=== PATIENT | male | born 1975 | race Caucasian/White ===

== ENCOUNTER 2020-02-10 08:31 | Outpatient (CLI) | payer OTHER, SELFPAY ==
--- NOTE | 2020-02-10 08:35 | ECHO_ITS ---
Patient Info Name: Jeyson Salazar Age: 44 years : 1975 Gender: Male Ht: 76 in Wt: 370 lbs BSA: 3.07 m2 HR: 70 bpm BP: 124 / 77 mmHg Heart Rhythm: Sinus Rhythm Technical Quality: Good Exam Date: 02/10/2020 8:48 AM Exam Location: [facility] Patient Status: Outpatient Admit Date: 02/10/2020 Staff Ordering Physician: Shan Strange DO Clinical Medical Transcriptionist: Jer Marcus RDCS Attending Provider: Shan Strange DO Referring Physician: Alexandr RAYMUNDO; Exam Type: CA echo doppler color flow Study Info Indications I42.8 - Other cardiomyopathies Complete two-dimensional, color flow and Doppler transthoracic echocardiogram is performed. Strain analysis performed. History/Risk Factors NICM. Summary 1. Complete two-dimensional, color flow and Doppler transthoracic echocardiogram is performed. 2. Left ventricular chamber dimension is moderately enlarged. 3. Left ventricular systolic function is moderately reduced, estimated at 40%. 4. There is mildly increased left ventricular wall thickness. 5. The left ventricular diastolic function is normal. 6. E/e' 7 is not elevated. 7. Global longitudinal strain is abnormal at -10.6%. 8. Left atrial chamber dimension is moderately enlarged. 9. There is trace mitral valve regurgitation. 10. There is trace tricuspid valve regurgitation. 11. No pulmonary hypertension, estimated pulmonary arterial systolic pressure is 35 mmHg. 12. There is trace pulmonic regurgitation. Left Ventricle Left ventricular systolic function is moderately reduced, estimated at 40%. E/e' 7 is not elevated. Global longitudinal strain is abnormal at -10.6%. Left ventricular chamber dimension is moderately enlarged. There is mildly increased left ventricular wall thickness. The left ventricular diastolic function is normal. Right Ventricle Right ventricular chamber dimension is normal. Right ventricular systolic function is normal. Left Atria Left atrial chamber dimension is moderately enlarged. Right Atria Right atrial chamber dimension is normal. Aortic Valve The aortic valve is trileaflet. There is no aortic valve stenosis. There is no aortic valve regurgitation. Pulmonic Valve There is trace pulmonic regurgitation. Mitral Valve There is no mitral valve stenosis. There is trace mitral valve regurgitation. Tricuspid Valve There is trace tricuspid valve regurgitation. No pulmonary hypertension, estimated pulmonary arterial systolic pressure is 35 mmHg. Pericardium/Pleural There is no pericardial effusion. Inferior Vena Cava Normal inferior vena cava with >50% collapse upon inspiration consistent with normal right atrial pressure, 5 mmHg. Aorta The aortic root size at the sinus of Valsalva is normal. Left Ventricular Outflow Tract Name Value Normal LVOT 2D LVOT Diameter 2.6 cm LVOT Doppler LVOT Peak Gradient 5 mmHg LVOT Mean Gradient 2 mmHg LVOT VTI 23 cm LVOT VTI/AV VTI Ratio 0.8 LVOT Stroke Volume
== END 2020-02-10 08:32 | disposition home or self-care (01) ==
PROVIDERS: PCP Internal Medicine; Visit Provider Internal Medicine Cardiovascular Disease
DX: I42.8 Other cardiomyopathies (principal)
CPT/HCPCS: 93306

== ENCOUNTER 2020-08-23 13:30 | Outpatient (CLI) | payer OTHER, SELFPAY ==
--- NOTE | 2020-08-23 13:34 | ECHO_ITS ---
Patient Info Name: Jeyson Salazar Age: 45 years : 1975 Gender: Male Ht: 76 in Wt: 380 lbs BSA: 3.12 m2 HR: 74 bpm BP: 124 / 86 mmHg Heart Rhythm: Sinus Rhythm Technical Quality: Fair Exam Date: 08/23/2020 1:42 PM Exam Location: [facility] Pul[facility] Patient Status: Outpatient Admit Date: 08/23/2020 Staff Ordering Physician: Shan Strange DO Safe Technician: Maegan Attending Provider: Shan Strange DO Referring Physician: Alexandr RAYMUNDO; Exam Type: CA echo dop color flow w con Study Info Indications I42.8 - Other cardiomyopathies Complete two-dimensional, color flow and Doppler transthoracic echocardiogram is performed with contrast to opacify the left ventricle and to improve the deliniation of the left ventricle endocardial borders. Contrast/Agitated Saline Contrast/Ag. Saline: Definity Amount: 2.00 ml Administered By: Julianna Velazquez RN New IV Access: Dorsum of Hand Site Condition: Site dressing applied and IV removed Summary 1. Left ventricular chamber dimension is moderately enlarged. 2. Definity contrast administered improved wall motion interpretation. 3. Left ventricular systolic function is moderately reduced, estimated at 40-45%. 4. There is moderately increased left ventricular wall thickness. 5. The left ventricular diastolic function is normal. 6. E/e' 10 is mildly elevated. 7. Left atrial chamber dimension is moderately enlarged. 8. No pulmonary hypertension, estimated pulmonary arterial systolic pressure is 29 mmHg. Left Ventricle Definity contrast administered improved wall motion interpretation. E/e' 10 is mildly elevated. Left ventricular chamber dimension is moderately enlarged. Left ventricular systolic function is moderately reduced, estimated at 40-45%. There is moderately increased left ventricular wall thickness. The left ventricular diastolic function is normal. Right Ventricle Right ventricular chamber dimension is normal. Right ventricular systolic function is normal. Left Atria Left atrial chamber dimension is moderately enlarged. Right Atria Right atrial chamber dimension is normal. Aortic Valve The aortic valve is trileaflet. There is no aortic valve stenosis. There is no aortic valve regurgitation. Pulmonic Valve There is no pulmonic regurgitation. Mitral Valve There is no mitral valve stenosis. There is no mitral valve regurgitation. Tricuspid Valve There is no tricuspid valve regurgitation. No pulmonary hypertension, estimated pulmonary arterial systolic pressure is 29 mmHg. Pericardium/Pleural There is no pericardial effusion. Inferior Vena Cava Normal inferior vena cava with >50% collapse upon inspiration consistent with normal right atrial pressure, 5 mmHg. Aorta The aortic root size at the sinus of Valsalva is normal. Left Ventricular Outflow Tract Name Value Normal LVOT 2D LVOT Diameter 2.89 cm LVOT Doppler LVOT Peak Gradient 5 mmHg LVOT Mean Gradient 3 mmHg LVOT VTI 22.78 cm
[2021-08-23] MEDS: PERFLUTREN LIPID MICROSPHERES 1.5 ML VIAL DILUTED TO 10 ML TOTAL VOLUME IV PUSH (14:00)
== END 2020-08-23 13:31 | disposition home or self-care (01) ==
PROVIDERS: PCP Internal Medicine; Visit Provider Internal Medicine Cardiovascular Disease
DX: I42.8 Other cardiomyopathies (principal)
CPT/HCPCS: C8929

== ENCOUNTER 2021-08-23 13:34 | Outpatient (CLI) | payer OTHER, SELFPAY ==
--- NOTE | 2021-08-23 13:50 | ECHO_ITS ---
Patient Info Name: Jeyson Salazar Age: 46 years : 1975 Gender: Male Ht: 76 in Wt: 380 lbs BSA: 3.12 m2 HR: 68 bpm BP: 149 / 97 mmHg Technical Quality: Good Exam Date: 08/23/2021 2:09 PM Exam Location: [facility] Pul[facility] Patient Status: Outpatient Admit Date: 08/23/2021 Staff Ordering Physician: Shan Strange DO Supervisor Building Maintenance: Charly Perez, SARA, RT Attending Provider: Shan Strange DO Referring Physician: Alexandr RAYMUNDO; Exam Type: CA echo dop color flow w con Study Info Indications I50.9 - Heart failure, unspecified Strain analysis performed. Complete two-dimensional, color flow and Doppler transthoracic echocardiogram is performed with contrast to opacify the left ventricle and to improve the deliniation of the left ventricle endocardial borders. Summary 1. Left ventricular chamber dimension is moderately enlarged. 2. Definity contrast administered improved wall motion interpretation. 3. Left ventricular systolic function is moderately reduced, estimated at 40-45%. 4. There is mildly increased left ventricular wall thickness. 5. The left ventricular diastolic function is normal. 6. E/e' 8 is minimally elevated. 7. Global longitudinal strain is abnormal at -12.8%. 8. There is trace mitral valve regurgitation. Left Ventricle E/e' 8 is minimally elevated. Definity contrast administered improved wall motion interpretation. Global longitudinal strain is abnormal at -12.8%. Left ventricular chamber dimension is moderately enlarged. Left ventricular systolic function is moderately reduced, estimated at 40-45%. There is mildly increased left ventricular wall thickness. The left ventricular diastolic function is normal. Right Ventricle Right ventricular systolic function is normal and with normal TAPSE 3.2 cm. Right ventricular chamber dimension is normal. Left Atria Left atrial chamber dimension is normal. Right Atria Right atrial chamber dimension is normal. Aortic Valve The aortic valve is trileaflet. There is no aortic valve stenosis. There is no aortic valve regurgitation. Pulmonic Valve There is no pulmonic regurgitation. Mitral Valve There is no mitral valve stenosis. There is trace mitral valve regurgitation. Tricuspid Valve There is no tricuspid valve regurgitation. Pericardium/Pleural There is no pericardial effusion. Inferior Vena Cava Normal inferior vena cava with >50% collapse upon inspiration consistent with normal right atrial pressure, 5 mmHg. Aorta The aortic root size at the sinus of Valsalva is normal. Left Ventricular Outflow Tract Name Value Normal LVOT 2D LVOT Diameter 2.82 cm LVOT Doppler LVOT Peak Gradient 7 mmHg LVOT Mean Gradient 4 mmHg LVOT VTI 26.85 cm LVOT VTI/AV VTI Ratio 0.94 LVOT Stroke Volume 167.78 ml LVOT CO 11.30 l/min LVOT CI 3.62 L/min/m2 Mitral Valve
== END 2021-08-23 13:35 | disposition home or self-care (01) ==
PROVIDERS: PCP Internal Medicine; Visit Provider Internal Medicine Cardiovascular Disease
DX: I42.8 Other cardiomyopathies (principal); R93.1 Abnormal findings on diagnostic imaging of heart and coronary circulation
CPT/HCPCS: C8929; Q9957

== ENCOUNTER 2022-01-19 13:33 | Outpatient (CLI) | payer OTHER, SELFPAY ==
--- NOTE | ~2022-01-19 | XR_ITS ---
EXAMINATION: XR chest 2V 01/19/2022 13:54 INDICATION: Chest pain PROCEDURE: 2 view chest COMPARISON: No prior studies for comparison. FINDINGS: The lungs are clear. The cardiomediastinal silhouette is within normal limits. There are no pleural effusions. There is no pneumothorax suspected. IMPRESSION: 1: NO ACUTE CARDIOPULMONARY DISEASE. Reviewed, dictated and finalized at location A.
== END 2022-01-19 13:34 | disposition home or self-care (01) ==
LOC: ANHIMG 13:36
PROVIDERS: PCP Internal Medicine; Visit Provider Physician Assistant Medical
DX: R07.9 Chest pain, unspecified (principal)
CPT/HCPCS: 71046

== ENCOUNTER 2022-06-13 01:00 | Day surgery (SDC) | payer OTHER, SELFPAY ==
[2022-05-31 12:10] VITALS: BMI 45.1
--- NOTE | 2022-06-12 11:08 | WPDANESEPPF ---
Anes - Initial Pre Proc Eval Procedure: Operation Date: 06/13/22 14:00 Proposed Procedures p Screening Colonoscopy - Larry Rosales MD Date/Time: 06/12/22 11:08 Surgeon: Larry Rosales MD Pre Op Diagnosis: neoplasm screening Patient Data Age: 47 Gender: M Height: 1.96 m Weight: 172.8 kg Allergies Allergy/AdvReac Type Severity Reaction Status Date / Time No Known Allergies Allergy Mild Verified 06/13/22 13:13 Home Medications Medication Instructions Recorded Confirmed Type aspirin 81 mg tablet,delayed 81 mg PO DAILY 07/21/19 06/13/22 History release (Adult Low Dose Aspirin) coenzyme Q10 10 mg capsule 10 mg PO DAILY 07/21/19 06/13/22 History omega-3 fatty acids 1,000 mg 2,000 mg PO BID 01/26/21 06/13/22 History capsule (Fish Oil Concentrate) sacubitril 97 mg-valsartan 103 mg 1 tablet PO BID #180 tabs 07/27/21 06/13/22 Rx tablet (Entresto) testosterone cypionate 200 mg/mL 150 mg (0.75 mL) IM WEEKLY #10 mL 01/16/22 06/13/22 Rx intramuscular oil montelukast 10 mg tablet 10 mg PO DAILY #30 tabs 03/10/22 06/13/22 Rx (Singulair) diazepam 2 mg tablet 2 mg PO TID PRN muscle spasm #90 03/21/22 06/13/22 Rx tabs misoprostol 200 mcg tablet 200 mcg PO BID #180 tabs 04/14/22 06/13/22 Rx pantoprazole 40 mg tablet,delayed 40 mg PO QHS #90 tabs 04/14/22 06/13/22 Rx release pregabalin 75 mg capsule (Lyrica) 150 mg PO BID #360 caps 04/25/22 06/13/22 Rx diclofenac sodium 75 mg 75 mg PO BID #180 tabs 05/01/22 06/13/22 Rx tablet,delayed release atomoxetine 40 mg capsule 40 mg PO DAILY #30 caps 05/16/22 06/13/22 Rx (Strattera) cyclobenzaprine 5 mg tablet 5 mg PO TID PRN low back pain #90 05/16/22 06/13/22 Rx tabs hydrocodone 7.5 mg-acetaminophen 1 tablet PO Q6H PRN pain #120 tabs 05/16/22 06/13/22 Rx 325 mg tablet linaclotide 145 mcg capsule 145 mcg PO DAILY #90 caps 05/16/22 06/13/22 Rx (Linzess) albuterol sulfate 90 mcg/actuation See Rx Instructions inhalation Q4H 05/29/22 06/13/22 Rx aerosol inhaler #8.5 grams carvedilol 25 mg tablet 25 mg PO BID 05/31/22 06/13/22 History fenofibrate 160 mg tablet 160 mg PO DAILY 05/31/22 06/13/22 History rosuvastatin 20 mg tablet 20 mg PO DAILY 05/31/22 06/13/22 History Patient hx anesthesia problems: none Family hx anesthesia problems: none Results Review: All pre-operative results and documents have been reviewed as part of the pre-operative evaluation. 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 [place] (dyspnea on exertion) Dyslipidemia Essential hypertension Hypersomnia Immunization due Morbid obesity with BMI of 45.0-49.9, adult NICM (nonischemic cardiomyopathy) CAIN on CPAP Palpitations with regular cardiac rhythm Systolic heart failure, chronic Unspecified systolic (congestive) heart failure Surgical History Surgical History (Updated 05/16/22 @ 09:18 by Lisa Alas PA-C) History of back surgery discectomy 2006 anterior fusion L5-S1 2006 History of elbow surgery bilateral for tendonitis 2009,2011 Family History Family History Mother Family history of malignant neoplasm Father Family history of congestive heart failure Social History Social History (Updated 05/16/22 @ 08:34 by Julianna Bell) Smoking status: Never smoker Second hand tobacco smoke exposure: No Alcohol intake: never Substance use: never Substance use type: does not use Lack of Transportation: No Lack of Food: Never True Current Housing: I Have Housing Conc
[2022-06-13 13:05] VITALS: BP 137/97; PULSE 78; RESP 18; TEMP 36.4; O2SAT 98; BMI 44.1
[2022-06-13] MEDS: LACTATED RINGERS 1,000 ML 150 ML IV CONT (13:25)
--- NOTE | 2022-06-13 14:17 | PM.HPGS ---
History of Present Illness History of Present Illness Consent: Risks, benefits, and alternatives have been discussed and questions answered. Patient agrees to proceed with procedure. Chief complaint: neoplasm screening Narrative: Jeyson Salazar is a 47 year old male with polyps when had first colonoscopy, second one about 8 years ago Review of Systems Constitutional: Constitutional: Denies headache(s) and Denies weakness Eyes: Eyes: Denies blurry vision ENT: Reports Normal hearing present, Denies headache(s) and Denies neck pain Cardiovascular: Cardiovascular: Denies chest pain and Denies dyspnea Respiratory: Respiratory: Denies dyspnea Gastrointestinal: Gastrointestinal: Reports no additional gastrointestinal complaints Genitourinary: Genitourinary: Denies dysuria Musculoskeletal: Musculoskeletal: Denies neck pain Integumentary/Breasts: Skin/Breast: Denies dry skin Neurologic: Reports Normal hearing present, Denies headache(s) and Denies weakness Psychiatric: Psychiatric: Denies anxiety Endocrine: Endocrine: Denies change in body appearance Hematologic/Lymphatic: Hematologic/Lymphatic: Denies easy bleeding Allergic/Immunologic: Allergic/Immunologic: Denies urticaria PMFSH Past Medical History Medical History (Updated 06/13/22 @ 14:18 by Larry Rosales MD) Asthma with acute exacerbation Biceps rupture, distal bilateral torn and repair R 2017, L 2021 Body mass index (BMI) 45.0-49.9, adult (01/30/19) CAD (coronary artery disease) Cardiomyopathy, unspecified Chest pain Chronic low back pain Chronic, continuous use of opioids Colon polyp COVID Dependence on other enabling machines and devices [place] (dyspnea on exertion) Dyslipidemia Essential hypertension Hypersomnia Immunization due Morbid obesity with BMI of 45.0-49.9, adult NICM (nonischemic cardiomyopathy) CAIN on CPAP Palpitations with regular cardiac rhythm Systolic heart failure, chronic Unspecified systolic (congestive) heart failure Surgical History Surgical History (Updated 05/16/22 @ 09:18 by Lisa Alas PA-C) History of back surgery discectomy 2006 anterior fusion L5-S1 2006 History of elbow surgery bilateral for tendonitis 2009,2011 Family History Family History Mother Family history of malignant neoplasm Father Family history of congestive heart failure Social History Social History (Updated 05/16/22 @ 08:34 by Julianna Bell) Smoking status: Never smoker Second hand tobacco smoke exposure: No Alcohol intake: never Substance use: never Substance use type: does not use Lack of Transportation: No Lack of Food: Never True Current Housing: I Have Housing Concerned About Future Housing: No Difficulty Paying Gas/Electric Bills: No Difficulty Paying for Meds: No Currently Unemployed: No Education: Trade/Vocational Certificate Difficulty w/ Childcare or Family Care: No Living arrangements: with family Occupation/Education: occupation Gender identity (if verbalized by the patient): Male Sexual Orientation (if Verbalized by the Patient): Straight or Heterosexual Spiritual care concerns: No Meds Home Medications and Allergies Home Medications Medication Instructions Recorded Confirmed Type aspirin 81 mg tablet,delayed 81 mg PO DAILY 07/21/19 06/13/22 History release (Adult Low Dose Aspirin) coenzyme Q10 10 mg capsule 10 mg PO DAILY 07/21/19 06/13/22 History omega-3 fatty acids 1,000 mg 2,000 mg PO BID 01/26/21 06/13/22 History capsule (Fish Oil Concentrate) sacubitril 97 mg-valsartan 103 mg 1 tablet PO BID #180 tabs 07/27/21 06/13/22 Rx tablet (Entresto) testosterone cypionate 200 mg/mL 150 mg (0.75 mL) IM WEEKLY #10 mL 01/16/22 06/13/22 Rx intramuscular oil montelukast 10 mg tablet 10 mg PO DAILY #30 tabs 03/10/22 06/13/22 Rx (Singulair) diazepam 2 mg tablet 2 mg PO TID PRN mus
[2022-06-13 14:44] VITALS: BP 115/81; PULSE 90; RESP 24; O2SAT 95
[2022-06-13 14:54] VITALS: BP 131/92; PULSE 80; RESP 19; O2SAT 97
[2022-06-13 15:04] VITALS: BP 133/92; PULSE 80; RESP 28; O2SAT 97
== END 2022-06-13 15:12 | disposition home or self-care (01) ==
PROVIDERS: PCP Physician Assistant Medical; Visit Provider Internal Medicine Gastroenterology
PROC: 0DJD8ZZ Inspection of Lower Intestinal Tract, Via Natural or Artificial Opening Endoscopic (ICD-10-PCS; CPT 45378; principal; 2022-06-13 14:00)
DX: Z12.11 Encounter for screening for malignant neoplasm of colon (principal); K57.30 Diverticulosis of large intestine without perforation or abscess without bleeding; K62.1 Rectal polyp; I25.10 Atherosclerotic heart disease of native coronary artery without angina pectoris; E78.5 Hyperlipidemia, unspecified; I11.0 Hypertensive heart disease with heart failure; I50.22 Chronic systolic (congestive) heart failure; G47.33 Obstructive sleep apnea (adult) (pediatric); J45.909 Unspecified asthma, uncomplicated; I42.9 Cardiomyopathy, unspecified; E66.01 Morbid (severe) obesity due to excess calories; Z68.41 Body mass index [BMI] 40.0-44.9, adult; M54.50 Low back pain, unspecified; G89.29 Other chronic pain; Z98.1 Arthrodesis status; Z79.82 Long term (current) use of aspirin; Z79.891 Long term (current) use of opiate analgesic; Z79.890 Hormone replacement therapy; Z79.51 Long term (current) use of inhaled steroids
CPT/HCPCS: 45380; 88305; J2704; J7120

== ENCOUNTER 2022-11-06 14:39 | Outpatient (CLI) | payer OTHER, SELFPAY ==
--- NOTE | 2022-11-06 14:43 | ECHO_ITS ---
Patient Info Name: Jeyson Salazar Age: 47 years : 1975 Gender: Male Ht: 76 in Wt: 390 lbs BSA: 3.16 m2 HR: 75 bpm BP: 179 / 108 mmHg Heart Rhythm: Sinus Rhythm Technical Quality: Fair Exam Date: 11/06/2022 2:52 PM Exam Location: [facility] Pul[facility] Patient Status: Outpatient Admit Date: 11/06/2022 Staff Ordering Physician: Shan Strange DO Shift Supervisor Rn: Maegan Stephens RDCS Attending Provider: Shan Strange DO Referring Physician: Alexandr RAYMUNDO; Exam Type: CA echo dop color flow w con Study Info Indications - other cardiomyopathy Complete two-dimensional, color flow and Doppler transthoracic echocardiogram is performed with contrast to opacify the left ventricle and to improve the deliniation of the left ventricle endocardial borders. Contrast/Agitated Saline Contrast/Ag. Saline: Definity Amount: 2.00 ml Administered By: Maegan Stephens RDCS Existing IV Access: Yes IV Access Condition: patent with no signs of infiltration Summary 1. Left ventricular chamber dimension is moderately enlarged. 2. Definity contrast administered improved wall motion interpretation. 3. Left ventricular systolic function is normal, estimated at 55-60%. 4. The left ventricular diastolic function is grade II diastolic dysfunction. 5. E/e' 9 is minimally elevated. 6. Left atrial chamber dimension is moderately enlarged. 7. No pulmonary hypertension, estimated pulmonary arterial systolic pressure is 17 mmHg. Left Ventricle E/e' 9 is minimally elevated. Definity contrast administered improved wall motion interpretation. Left ventricular chamber dimension is moderately enlarged. Left ventricular systolic function is normal, estimated at 55-60%. The left ventricular diastolic function is grade II diastolic dysfunction. Right Ventricle Right ventricular systolic function is normal and with normal TAPSE 2.2 cm. Right ventricular chamber dimension is normal. Left Atria Left atrial chamber dimension is moderately enlarged. Right Atria Right atrial chamber dimension is normal. Aortic Valve The aortic valve is trileaflet. There is no aortic valve stenosis. There is no aortic valve regurgitation. Pulmonic Valve There is no pulmonic regurgitation. Mitral Valve There is no mitral valve stenosis. There is no mitral valve regurgitation. Tricuspid Valve There is no tricuspid valve regurgitation. No pulmonary hypertension, estimated pulmonary arterial systolic pressure is 17 mmHg. Pericardium/Pleural There is no pericardial effusion. Inferior Vena Cava Normal inferior vena cava with >50% collapse upon inspiration consistent with normal right atrial pressure, 5 mmHg. Aorta The aortic root size at the sinus of Valsalva is normal. Left Ventricular Outflow Tract Name Value Normal LVOT 2D LVOT Diameter 2.52 cm LVOT Doppler LVOT Peak Gradient 4 mmHg LVOT Mean Gradient 2 mmHg LVOT VTI 19.18 cm LVOT VTI/AV VTI Ratio 0.62 LVOT Stroke Volume 95.73 ml LVOT CO 6.99 l/min LVOT CI
[2022-11-06] MEDS: PERFLUTREN LIPID MICROSPHERES 1.5 ML VIAL DILUTED TO 10 ML TOTAL VOLUME IV PUSH (15:30)
--- NOTE | 2022-11-06 16:11 | IVDEFINITY ---
Prior to administration of IV Definity the patient was educated on the risks and benefits of the imaging enhancing agent including potential adverse side effects. The patient verbalized understanding. Allergies were verified. No exclusion criteria were identified and at least one of the following inclusion criteria were met: 1) physician request, 2) patient technically difficult to image (per the [place] [employer] guidelines of two or more segments not discernable within the apical view), or 3) questionable left ventricular function. ?
== END 2022-11-06 14:40 | disposition home or self-care (01) ==
LOC: ANHCARD 14:40
PROVIDERS: PCP Physician Assistant Medical; Visit Provider Internal Medicine Cardiovascular Disease
DX: I42.8 Other cardiomyopathies (principal)
CPT/HCPCS: C8929; Q9957

== ENCOUNTER 2024-10-07 15:20 | Outpatient (CLI) | payer OTHER, SELFPAY ==
--- NOTE | ~2024-10-07 | US_ITS ---
LEFT LOWER EXTREMITY VENOUS ULTRASOUND Ordering provider: Shan Strange DO History: . M79.605 - Pain in left leg . Comparison: None. FINDINGS: --COMMON FEMORAL: Patent and free of thrombus. Normal compressibility, phasic flow and augmentation. --PROXIMAL SUPERFICIAL FEMORAL: Patent and free of thrombus. Normal compressibility, phasic flow and augmentation. --DISTAL SUPERFICIAL FEMORAL: Patent and free of thrombus. Normal compressibility, phasic flow and au gmentation. --POPLITEAL: Patent and free of thrombus. Normal compressibility, phasic flow and augmentation. --POSTERIOR TIBIAL: Patent and free of thrombus. Normal compressibility, phasic flow and augmentation . Thrombosis seen in the greater and lesser saphenous veins. IMPRESSION: No deep vein thrombosis. Thrombosis in the greater and lesser saphenous veins. Reviewed, dictated and finalized at location A.
== END 2024-10-07 15:21 | disposition home or self-care (01) ==
PROVIDERS: PCP Physician Assistant Medical; Visit Provider Internal Medicine Cardiovascular Disease
DX: M79.605 Pain in left leg (principal); I82.812 Embolism and thrombosis of superficial veins of left lower extremity
CPT/HCPCS: 93971

== ENCOUNTER 2024-11-11 11:30 | Outpatient (CLI) | payer OTHER, SELFPAY ==
--- OUTSIDE RECORDS SUMMARY | 2024-11-11 11:33 | XMS_ITS | Referral Summary ---
Author Organization [facility] Healthcare Address [address] [place] [address] Care Team Providers Care Revenue Settlements Administrator Name Role Phone Donta Garsia MD Unavailable [phone] Lisa Alas Primary Care Provider [phone] Encounters Date Type Department Care Team Description 10/08/[address] [facility] Otolaryngology [address] [place] [phone] Xuan Ellis CCC-Levi 09/23/[address] [facility] Otolaryngology [address] [place] [phone] Xuan Ellis CCC-Levi 09/18/2024 1:00 PM CDT Procedure visit [facility] Otolaryngology [address] [place] [phone] Xuan Ellis CCC-A Sensorineural hearing loss, bilateral (Primary Dx); Encounter for adjustment and management of cochlear device 09/03/2024 1:00 PM CDT Procedure visit [facility] Otolaryngology [address] [place] [address], [address] [address] Xuan Ellis CCC-A Sensorineural hearing loss (SNHL) of right ear with restricted hearing of left ear (Primary Dx) 08/27/2024 1:00 PM CDT Procedure visit [facility] Otolaryngology [address], [address] [place] [address] Xuan Ellis CCC-Levi Sensorineural hearing loss, bilateral (Primary Dx); Encounter for adjustment and management of cochlear device 08/15/[address] [facility] Otolaryngology [address], [address] [place] [address] Yvonne Blakely CMA Telephone (Transderm Scop Patch) 08/13/2024 11:30 AM CDT Ancillary Procedure [facility] [address] [place] [address] Cochlear hearing loss 08/13/2024 10:40 AM CDT - 08/13/2024 1:00 PM CDT Surgery [facility] Operating Room [address] [place] [address] Dirk Harris MD IMPLANTATION COCHLEAR DEVICE UNILATERAL. [69844 (CPT )] 08/13/2024 10:43 AM CDT Anesthesia Event [facility] Operating Room [address] [place] [address] Alfredo Faith MD Maue, Jessica Brooke, NP 08/13/2024 8:22 AM CDT - 08/13/2024 2:18 PM CDT Hospital Encounter [facility] Operating Room [address] [place] [id number] Dirk Harris MD Sensorineural hearing loss, bilateral [H90.3] (Primary Dx) Discharge Disposition: Discharge to home or self care from Last 3 Months Allergies No known active allergies Medications Entresto 97-103 mg tabletIndications :chronic heart failure Take 1 tablet by mouth 2 (two) times a day 2 Active rosuvastatin (CRESTOR) 20 mg tabletIndications :hyperlipidemia Take 1 tablet (20 mg total) by mouth nightly [address] (PROTONIX) 40 mg EC tablet Take 1 tablet (40 mg total) by mouth nightly at bedtime. 2 Active montelukast (SINGULAIR) 10 mg tabletIndications :Seasonal Allergic Rhinitis Take 1 tablet (10 mg total) by mouth nightly 2 Active miSOPROStoL (CYTOTEC) 200 mcg tabletIndications :Gastric Ulcer,NSAID-Induc ed Gastric Ulcer Take 1 tablet (200 mcg total) by mouth 2 (two) times a day While taking diclofenac 2 Active HYDROcodone-aceta minophen (NORCO) 7.5-325 mg per tabletIndications :Pain Take 1 tablet by mouth 4 (four) times a day as needed for pain 2 Active fenofibrate (TRIGLIDE) 160 mg tabletIndications :hypercholesterol emia,hyperlipidem ia Take 1 tablet (160 mg total) by mouth nightly [address] (VOLTAREN) 75 mg EC tabletIndications :Pain Take 1 tablet (75 mg total) by mouth 2 (two) times a day 2 Active diazePAM (VALIUM) 2 mg tabletIndications :anxiety Take 1 tablet (2 mg total) by mouth 3 (three) times a day as needed 2 Active cyclobenzaprine (FLEXERIL) 5 mg tabletIndications :Muscle Spasm Take 1 tablet (5 mg total) by mouth 3 (three) times a day as needed for muscle spasms 2 Active carvediloL (COREG) 25 mg tabletIndications :hypertension Take 1 tablet (25 mg total) by mouth 2 (two) times a day with meals 2 Active albuterol HFA (PROVENTIL HFA,VENTOLIN HFA,PROAIR HFA) 90 mcg/actuation inhalerIndication s:Acute Asthma Attack Inhale 2 puffs every 4 (four) hours as needed 2 Active aspirin 81 mg enteric coated tabletIndications :prevention of thrombosis Take 1 tablet (81 mg total) by mouth every morning Active coenzyme Q10 10 mg capsuleIndication s:supplement Take 1 capsule (10 mg total) by mouth every morning Active fish oil-dha-epa 1,200-144-216 mg capsuleIndication s:supplement Take 1 tablet by mouth every morning Active atomoxetine (STRATTERA) 100 mg capsuleIndication s:Attention-Defic it Hyperactivity Disorder Take 1 capsule (100 mg total) by mouth every morning 4 Active Linzess 72 mcg capsuleIndication s:chronic idiopathic constipation Take 1 capsule (72 mcg total) by mouth every morning Active cetirizine (ZyrTEC) 10 mg tabletIndications :Seasonal Allergic Rhinitis Take 1 tablet (10 mg total) by mouth every morning Active sildenafiL (VIAGRA) 100 mg tablet Take 1 tablet (100 mg total) by mouth as needed for erectile dysfunction 4 Active testosterone cypionate (DEPO-TESTOTERONE ) 200 mg/mL injectionIndicati ons:Androgen Deficiency Inject 1 mL (200 mg total) into the muscle as instructed once a week sundays 4 Active Mounjaro 15 mg/0.5 mL pen injectorIndicatio ns:type 2 diabetes mellitus,weight loss Inject 0.5 mL (15 mg total) under the skin once a week sundays 4 Active topiramate (TOPAMAX) 25 mg tablet Take 1 tablet (25 mg total) by mouth every morning 5 Active phentermine 15 mg capsuleIndication s:Weight Loss Management for Obese Patient (BMI >= 30) Take 1 capsule (15 mg total) by mouth every morning 5 Active pregabalin (LYRICA) 75 mg capsuleIndication s:pain Take 2 capsules (150 mg total) by mouth 2 (two) times a day 5 Active amoxicillin (AMOXIL) 500 mg tablet/capsule Take 1 tablet/capsule (500 mg total) by mouth 2 (two) times a day 10 tablet/capsu le 5 Active Active Problems Problem Noted Date Diagnosed Date Sensorineural hearing loss, bilateral 08/13/2024 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 I think at this point there is not a lot of reason to pursue any further injections and we talked about that. We discussed hearing aid options including a cochlear implant versus a Bi Cros type of hearing aid system or a bone conduction hearing aid. I think he should probably talk with 1 of the otologists to discuss the possible surgical solutions. He also would like to do that. He does indicate that his tinnitus has become much more tolerable although it is still present and somewhat bothersome. Assessment & Plan (11/07/2023 8:38 PM CDT): I recommended another steroid injection. He really did not have much improvement with the 1st 1. He would like to go ahead and pursue that also. I am recommending a follow-up audiogram in about 4 weeks. We talked about amplification options including a Bi Cros hearing aid as well as a bone conduction aid. We will see how things go. Assessment & Plan (10/30/2023 12:19 PM CDT): He has had a very minimal improvement in his hearing on the right side after taking steroids and Valtrex. His MRI scan was also normal and I reviewed that with him. After reviewing his hearing test with him I think he would benefit from intratympanic steroid injection and he would like to go ahead and pursue that. He understands the risks that it may not help. There is some risk of vertigo. Some risk of a TM perforation. He accepts that. He tolerated the steroid injection quite well on the right side. I am going to treat with another steroid pack at his request and I do think this is reasonable. I would like to see him back in about 1-2 weeks with a hearing test and possibly another steroid injection. He would like to pursue that also. Assessment & Plan (10/16/2023 12:52 PM CDT): He has a sudden hearing loss involving the right ear. I talked with him about the various potential causes for this including a viral infection or 8th nerve tumor. Also could be due to vascular injury or rupture of the intracochlear membranes. In any case I think he needs to be treated with a high dose of prednisone along with a course of Valtrex. I also I am recommending an MRI scan which he is agreeable with. I would like to see him back in the next week or 2 for a follow up hearing test. I discussed the potential need for intratympanic steroids. I also indicated that all this may not work leaving him with deafness in his right ear. He understands. He would like to go ahead and proceed with my recommendations. Tinnitus of both ears 10/16/2023 Assessment & Plan (11/07/2023 8:39 PM CDT): This has become a little bit more tolerable but he still has noise sensitivity which can be difficult. There is not a whole lot more that can be done for this. Sometimes amplification can help. He understands. Assessment & Plan (10/30/2023 12:17 PM CDT): He again wanted to know if there is anything that can be done with the ringing he has in his ears. I think that most of this is due to his hearing loss. I indicated that there is not a whole lot that can be done for that at least medically. Hearing aids can be very helpful I explained. I also recommended some type of ambient noise generator to use when he is trying to sleep. He understands. Assessment & Plan (10/16/2023 12:49 PM CDT): Tinnitus is probably due to hearing loss but now seems worse. He is tolerating it pretty well and over the years has gotten used to it. I do not feel there is much more that can be done for it other than considering amplification at some point. He understands that. Pain in both lower extremities 10/05/2022 Rupture of biceps tendon 07/04/2017 Lateral epicondylitis 05/16/2011 Immunizations Immunization Administration Dates Next Due Pneumococcal Conjugate Pcv20 07/23/2024 Tdap 05/16/2022 Social History Tobacco Use Types Packs/Day Years Used Date Smoking Tobacco: Never Smokeless Tobacco: Never Tobacco Cessation:Counseling Given: Not Answered AUDIT-C Answer Date Recorded Q1: How often do you have a drink containing alcohol? Never 08/13/2024 Q2: How many drinks containi ng alcohol do you have on a typical day when you are drinking? Patient does not drink Q3: How often do you have si x or more drinks on one occasion? Never 08/13/2024 Personal Safety Answer Date Recorded Have you ever been in or are you currently in a harmful physical or emotional relationship or is someone making you feel afraid or unsafe? 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 Gender Identity Not on file Sexual Orientation Not on file Last Filed Vital Signs Vital Sign Reading Time Taken Comments Blood Pressure 105/78 08/13/2024 2:10 PM CDT Pulse 102 08/13/2024 2:10 PM CDT Temperature 36.7 C (98.1 F) 08/13/2024 1:00 PM CDT Respiratory Rate 18 08/13/2024 2:10 PM CDT Oxygen Saturation 93% 08/13/2024 2:10 PM CDT Inhaled Oxygen Concentration - - Weight 142 kg (313 lb) 08/13/2024 8:40 AM CDT Height 195.6 cm (6' 5) 08/13/2024 8:40 AM CDT Body Mass Index 37.12 08/13/2024 8:40 AM CDT Plan of Treatment Not on file Medical Devices Implanted Type Area Supervisor [employer] Device Identifier Shelf Expiration Date Model / Serial / Lot Fusion N/A: Lumbar-Sacr al Spine [employer] Corkscrew Fiberwire 3.5mm 12mm Self Tap Eyelet Handle Private Duty Aide Ar-1915sf - [id number] Implanted:Qty: 1 on 11/16/2021 by Ferny Rodríguez MD at [facility] Left: Arm [employer] [id number] 01/13/2022 AR-1915SF / / [id number] [employer] Corkscrew Fiberwire 3.5mm 12mm Self Tap Eyelet Handle Private Duty Aide Ar-1915sf - [id number] Implanted:Qty: 1 on 11/16/2021 by Fenry Rodríguez MD at [facility] Left: Arm [employer] [id number] 02/13/2023 AR-1915SF / / [id number] [employer] Implant Cochlear Contour Electrode Mri Compatible Sterile Latex Free [id number] - [id number] - [id number] Implanted:Qty: 1 on 08/13/2024 by Dirk Harris MD at [facility] Right: Cochlea [employer] [id number] 03/18/2026 [id number] / [id number] / Procedures Procedure Name Priority Date/Time Associated Diagnosis Comments AUDBASE RESULTS 09/03/2024 12:45 PM CDT POCT GLUCOSE DEVICE Routine 08/13/2024 1 :10 PM CDT XR SKULL LESS THAN 4 VIEWS Schedule Routine, Read Routine (OP Routine) 08/13/2024 12:28 PM CDT Cochlear hearing loss POCT GLUCOSE DEVICE Routine 08/13/2024 1 1:12 AM CDT SD AN PROCEDURE PLACEHOLDER Routine 08/13/2024 11:04 AM CDT SD AN ELECTIVE ENDOTRACHEAL AIRWAY Routine 08/13/2024 11:04 AM CDT SD COCHLEAR DEVICE IMPLANTATION W/WO MASTOIDECTOMY 08/13/2024 10:45 AM CDT Sensorineural hearing loss, bilateral POCT GLUCOSE DEVICE Routine 08/13/2024 8 :47 AM CDT from Last 3 Months Results * AudBase Results (09/03/2024 12:45 PM CDT) Provider Scanning AUDIOLOGY SERVICES ORDERABLES Final Result * POCT glucose (08/13/2024 1:10 PM CDT) Glucose, POC 126 70 - 199 mg/dL Comment: Interpretive Data Glucose is assumed to be non-fasting. Fasting Glucose reference ranges are: 0 - 150 years: 70 mg/dL - 99 mg/dL Current interpretive data was last revised on 2013. POC Performer [id number] [facility] Device Number [id number] [facility] Blood 08/13/2024 1:10 PM CDT 08/13/2024 1:10 PM CDT Dirk Harris MD LAB POCT ORDERABLES - DEVIC E Final Result [facility] [id number] [address] Department [place] [address] * XR Skull Less than 4 Views (08/13/2024 12:28 PM CDT) Anatomical Region Laterality Modality Head and Neck N/A Computed Radiogr aphy 08/13/2024 12:3 7 PM CDT Impressions 08/13/2024 12:37 PM CDT 1. Right cochlear implant in expected position Electronically signed by: Bebeto Santana MD Narrative 08/13/2024 12:37 PM CDT EXAMINATION: XR SKULL LESS THAN 4 VIEWS HISTORY: Cochlear implant. FINDINGS: No comparison. Right cochlear implant with visualized leads in expected position. Visualized lead is intact, however portions are secured by overlying retractor. No acute fracture. Multiple support devices overlie patient. Procedure Note Bebeto Santana MD - 08/13/2024 EXAMINATION: XR SKULL LESS THAN 4 VIEWS HISTORY: Cochlear implant. FINDINGS: No comparison. Right cochlear implant with visualized leads in expected position. Visualized lead is intact, however portions are secured by overlying retractor. No acute fracture. Multiple support devices overlie patient. IMPRESSION: 1. Right cochlear implant in expected position Electronically signed by: Bebeto Santana MD us Dirk Harris MD IMG XR PROCEDURES Final Res ult * POCT glucose (08/13/2024 11:12 AM CDT) Glucose, POC 98 70 - 199 mg/dL Comment: Interpretive Data Glucose is assumed to be non-fasting. Fasting Glucose reference ranges are: 0 - 150 years: 70 mg/dL - 99 mg/dL Current interpretive data was last revised on 2013. POC Performer [id number] [facility] Device Number [id number] [facility] Blood 08/13/2024 11:1 2 AM CDT 08/13/2024 11:12 AM CDT us Dirk Harris MD LAB POCT ORDERABLES - DEVIC E Final Result Performing Organization Address City/State/[facility] [place] Phone Number [facility] [id number] [facility] Department [place] [address] * SD AN ELECTIVE ENDOTRACHEAL AIRWAY, SD AN PROCEDURE PLACEHOLDER (08/13/2024 11:04 AM CDT) Narrative Mimi Drake CRNA - 08/13/2024 11:04 AM CDT iMmi Drake CRNA 08/13/2024 11:07 AM Airway Patient location: OR Urgency: elective Date/time: 08/13/2024 10:54 AM Indications for airway management: anesthesia and airway protection Difficult airway: no Staff: Placed by: MECHANICAL PRODUCT DESIGN ENGINEER: Mimi Drake CRNA Emergent airway documentation: Risks and benefits discussed: yes Consent obtained: yes Consent given by: patient Airway prep: Preoxygenated: yes Patient position: sniffing Mask difficulty assessment: 0 - not attempted Spontaneous ventilation during airway: absent Sedation level during airway: GA Final airway details: Final airway type: endotracheal airway Tube type: ETT ETT size: 7.5 mm Cuffed: yes Technique used for successful ETT placement: direct laryngoscopy Devices/Methods used in placement: stylet Insertion site: oral Blade type: Jonathan Blade size: 4 Cormack-Lehane (direct): grade IIb - view of arytenoids or posterior of glottis only (Using head lift and external laryngeal pressure. ETT easily placed.) Cuff volume: 8 mL Cuff inflated with: air ETT to lips: 24 cm Placement verified by: auscultation, CO2 detection and palpation of cuff Airway secured with: silk tape Number of attempts: 1 Planned trial extubation: yes us Alfredo Faith MD ANESTHESIA ORDERABLES Cathy l Result * POCT glucose (08/13/2024 8:47 AM CDT) Glucose, POC 101 70 - 199 mg/dL Comment: Interpretive Data Glucose is assumed to be non-fasting. Fasting Glucose reference ranges are: 0 - 150 years: 70 mg/dL - 99 mg/dL Current interpretive data was last revised on 2013. POC Performer [id number] [facility] Device Number [id number] [facility] Blood 08/13/2024 8:47 AM CDT 08/13/2024 8:47 AM CDT Dirk Harris MD LAB POCT ORDERABLES - DEVIC E Final Result [facility] [id number] [facility]. Department [place] [address] from Last [address] [place] [address] [place] [address] HMO [facility] CIGNA IBEW CIGNA Care Teams Revenue Settlements Administrator Relationship Specialty Start Date End Date Lisa Alas PA [address] [place] [id number] PCP - General Family Practice 10/15/23 Donta Garsia MD [address] [place] [id number] 07/23/17
--- OUTSIDE RECORDS SUMMARY | 2024-11-11 11:33 | XMS_ITS | Clinical Summary ---
Author Organization [facility] Healthcare Address [address] [place] [address] Care Team Providers Care Data Entry Associate Name Role Phone Dnota Garsia MD Unavailable [phone] Lisa Alas Primary Care Provider [phone] Allergies No known active allergies Medications Entresto [...] of biceps tendon 07/04/2017 Lateral epicondylitis 05/16/2011 Encounters Date Type Department Care Team Description 10/08/2024 Telephone [facility] Otolaryngology [address] [place] [address], [address] [address] Xuan Ellis CCC-A 09/23/2024 Telephone [facility] Otolaryngology [address] [place] [address], [address] [address] Xuan Ellis CCC-A 09/18/2024 1:00 PM CDT Procedure visit [facility] Otolaryngology [address] [place] [address], [address] [address] Xuan Ellis CCC-A Sensorineural hearing loss, bilateral (Primary Dx); Encounter for adjustment and management of cochlear device 09/03/2024 1:00 PM CDT Procedure visit [facility] Otolaryngology [address] [place] [address], [address] [address] Xuan Ellis CCC-A Sensorineural hearing loss (SNHL) of right ear with restricted hearing of left ear (Primary Dx) 08/27/2024 1:00 PM CDT Procedure visit [facility] Otolaryngology [address] [place] [address], [address] [address] Xuan Ellis CCC-A Sensorineural hearing loss, bilateral (Primary Dx); Encounter for adjustment and management of cochlear device 08/15/2024 Documentation [facility] Otolaryngology [address], [address] [place] [phone] Yvonne Blakely CMA Telephone (Transderm Scop Patch) 08/13/2024 11:30 AM CDT Ancillary Procedure [facility] Imaging [address] [place] [phone] Cochlear hearing loss 08/13/2024 10:43 AM CDT Anesthesia Event [facility] Operating Room [address] [place] [address] Alfredo Faith MD Maue, Radha Irwin, RENAY 08/13/2024 10:40 AM CDT - 08/13/2024 1:00 PM CDT Surgery [facility] Operating Room [address] [place] [address] Dirk Harris MD IMPLANTATION COCHLEAR DEVICE UNILATERAL. [69434 (CPT )] 08/13/2024 8:22 AM CDT - 08/13/2024 2:18 PM CDT Hospital Encounter [facility] Operating Room [address] [place] [phone] Dirk Harris MD Sensorineural hearing loss, bilateral [H90.3] (Primary Dx) Discharge Disposition: Discharge to home or self care from Last 3 Months Immunizations Immunization Administration Dates Next Due Pneumococcal Conjugate Pcv20 07/23/2024 Tdap 05/16/2022 Surgical History Surgery Date Site/Laterality Comments LUMBAR FUSION 04/16/2004 - 04/15/2005 L4-S1 DEBRIDEMENT TENNIS ELBOW Bilateral 2007; 2011 BICEPS TENDON REPAIR 11/16/2021 Left right-2018 COLONOSCOPY MICRODISCECTOMY 04/16/2003 - 04/15/2004 EAR MASTOIDECTOMY W/ COCHLEAR IMPLANT W/ LANDMARK 08/13/2024 Ear/Right Procedure: IMPLANTATION COCHLEAR DEVICE UNILATERAL.; Surgeon: Dirk Harris MD; Location: [facility] OPERATING ROOM; Service: Otolaryngology; Laterality: Right; Medical devices from this surgery are in the Medical Devices section. Medical History Medical History Date Comments Sleep apnea HTN (hypertension) HLD (hyperlipidemia) Seasonal allergies CHF (congestive heart failure) (HCC) Allergic rhinitis Asthma Diabetes (HCC) Heart disease HL (hearing loss) Tinnitus Family History Medical History Relation Name Comments Cancer Father Family history of malignant neoplasm - (Added by Conv) Heart disease Father Family history of cardiac disorder - (Added by Conv) Hypertension Father Family history of hypertension - (Added by Conv) Cancer Mother Family history of malignant neoplasm - (Added by Conv) Anesthesia problems Neg Hx Relation Name Status Comments Father Mother Social History Tobacco Use Types Packs/Day Years [...] on file 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 Gender Identity Not on file Sexual Orientation Not on file Obstetrics History Last Filed Vital Signs Vital Sign Reading [...] 08/13/2024 8:40 AM CDT Plan of Treatment Health Maintenance Due Date Last Done Comments Colon Cancer Screening-Colonoscopy 1975 Depression Screening 1976 Hepatitis C Screening 1976 Hepatitis B Screening 1994 Regular Well Visit/Exam 18-64 1994 Covid-19 Vaccine (2023- season) 2023 02/17/2021, 07/12/2020, 06/14/2020 Influenza Vaccine (#1) 2024 DTaP/Tdap/Td Vaccine (2 - Td or Tdap) 05/16/2032 Pneumococcal vaccine <65 Completed 07/23/2024 Medical Devices Implanted Type Area Judicial Administrative Assistant Device Identifier Shelf Expiration Date Model / Serial / Lot Fusion N/A: Lumbar-Sacr al Spine [employer] Corkscrew Fiberwire 3.5mm 12mm Self Tap Eyelet Handle Orthopedic Mechanic Ar-1915sf - [id number] Implanted:Qty: 1 on 11/16/2021 by Ferny Rodríguez MD at [facility] Left: Arm [employer] [id number] 01/13/2022 AR-1915SF / / [id number] [employer] Corkscrew Fiberwire 3.5mm 12mm Self Tap Eyelet Handle Orthopedic Mechanic Ar-1915sf - [id number] Implanted:Qty: 1 on 11/16/2021 by Ferny Rodríguez MD at [facility] Left: Arm [employer] [id number] 02/13/2023 AR-1915SF / / [id number] [employer]chle[employer] Implant Cochlear Contour Electrode Mri Compatible Sterile Latex Free [id number] - [id number] - [id number] Implanted:Qty: 1 on 08/13/2024 by Dirk Harris MD at [facility] Right: Cochlea [employer] [id number] 03/18/2026 [id number] / [id number] / Procedures Procedure Name Priority Date/Time Associated Diagnosis Comments AUDBASE RESULTS 09/03/2024 12:45 PM CDT POCT GLUCOSE DEVICE Routine 08/13/2024 1 :10 PM CDT XR SKULL LESS THAN 4 VIEWS Schedule Routine, Read Routine (OP Routine) 08/13/2024 12:28 PM CDT Cochlear hearing loss POCT GLUCOSE DEVICE Routine 08/13/2024 1 1:12 AM CDT ND AN PROCEDURE PLACEHOLDER Routine 08/13/2024 11:04 AM CDT ND AN ELECTIVE ENDOTRACHEAL AIRWAY Routine 08/13/2024 11:04 AM CDT ND COCHLEAR DEVICE IMPLANTATION W/WO MASTOIDECTOMY 08/13/2024 10:45 AM CDT Sensorineural hearing loss, bilateral POCT GLUCOSE DEVICE Routine 08/13/2024 8 :47 AM CDT from Last 3 Months Results * AudBase Results (09/03/2024 12:45 PM CDT) us Provider Scanning AUDIOLOGY SERVICES ORDERABLES Final Result * POCT glucose (08/13/2024 1:10 PM CDT) [facility] Signature Glucose, POC 126 70 - 199 mg/dL Comment: Interpretive Data Glucose is assumed to be non-fasting. Fasting Glucose reference ranges are: 0 - 150 years: 70 mg/dL - 99 mg/dL Current interpretive data was last revised on 2013. POC Performer [id number] [facility] POC Device Number [id number] [facility] Blood 08/13/2024 1:10 PM CDT 08/13/2024 1:10 PM CDT Dirk Harris MD LAB POCT ORDERABLES - DEVIC E Final Result [facility] [id number] [facility] Department [place] [address] * XR Skull Less than 4 Views [...] * POCT glucose (08/13/2024 11:12 AM CDT) [facility] Signature Glucose, POC 98 70 - 199 mg/dL Comment: Interpretive Data Glucose is assumed to be non-fasting. Fasting Glucose reference ranges are: 0 - 150 years: 70 mg/dL - 99 mg/dL Current interpretive data was last revised on 2013. POC Performer [id number] [facility] POC Device Number [id number] [facility] Blood 08/13/2024 11:1 2 AM CDT 08/13/2024 11:12 AM CDT us Dirk Harris MD LAB POCT ORDERABLES - DEVIC E Final Result [facility] [id number] [facility] [place] [address] [phone] * ND AN ELECTIVE ENDOTRACHEAL AIRWAY, ND AN PROCEDURE PLACEHOLDER (08/13/2024 11:04 AM CDT) Narrative Mimi Drake CRNA - 08/13/2024 11:04 AM CDT Mimi Drake CRNA 08/13/2024 11:07 AM Airway Patient location: OR Urgency: elective Date/time: 08/13/2024 10:54 AM Indications for airway management: anesthesia and airway protection Difficult airway: no Staff: Placed by: WILDLIFE CONSERVATIONIST: Mimi Drake CRNA Emergent airway documentation: Risks [...] * POCT glucose (08/13/2024 8:47 AM CDT) [facility] Signature Glucose, POC 101 70 - 199 mg/dL Comment: Interpretive Data Glucose is assumed to be non-fasting. Fasting Glucose reference ranges are: 0 - 150 years: 70 mg/dL - 99 mg/dL Current interpretive data was last revised on 2013. POC Performer [id number] [facility] POC Device Number [id number] [facility] Blood 08/13/2024 8:47 AM CDT 08/13/2024 8:47 AM CDT Dirk Harris MD LAB POCT ORDERABLES - DEVIC E Final Result Performing Organization Address City/State/[facility] Co de Phone Number [facility] [address] [place] [address] from Last 3 Months Insurance [employer] [facility] HMO CIGNA CIGNA IBEW CIGNA Care Teams Data Entry Associate Relationship Specialty Start Date End Date Lisa Alas PA [address] [place] [id number] PCP - General Family Practice 10/15/23 Donta Garsia MD [address] [place] [id number] 07/23/17
--- OUTSIDE RECORDS SUMMARY | 2024-11-11 11:33 | XMS_ITS | Clinical Summary ---
Author Organization [facility] Address [address] [place] [address] Care Team Providers Care Editor Publications Name Role Phone Lisa Alas Primary Care Provider [phone] Source Comments [facility],non-owned Affiliates and Associated Physician Practices is amultiple site organization consisting of ambulatory clinics and hospital sitesin [place], [place], [place] and [place]. This disclosure is being madepursuant to the Care Everywhere program and may not contain all information available regarding this patient. Last updated 18.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 Gender Identity Not on file Sexual Orientation Not on file Plan of Treatment Health Maintenance Due Date Last Done Comments COLOGUARD (AGES 45-75) - COL ON CA SCREENING 1976 COLON MONITORING 1976 COLONOSCOPY - COLON CA SCREENING 1976 CT COLONOGRAPHY - COLON CA SCREENING 1976 Colorectal Cancer Screening 1976 FIT - COLON CA SCREENING 1976 FLEX SIG - COLON CA SCREENING 1976 LIPID TESTING 1976 HIV SCREENING 1991 HEPATITIS C SCREENING 04/18/1994 DTAP/TDAP/TD VACCINES (1 - Tdap) 1995 HEPATITIS B VACCINE (1 of 3 - 19+ 3-dose series) 1995 COVID-19 VACCINE ( - 2023-2 5 season) 2023 DEPRESSION SCREENING 04/16/2024 INFLUENZA VACCINE (#1) 2024 ZOSTER VACCINE (1 of 2) 2026 HIB VACCINE Aged Out No longer eligi ble based on patient's age to complete this topic HPV VACCINE Aged Out No longer eligi ble based on patient's age to complete this topic MENINGOCOCCAL (Group B) VACC INE SHARED DECISION-MAKING Aged Out No longer eligibl e based on patient's age to complete this topic MENINGOCOCCAL GROUPS A/C/Y/W VACCINE Aged Out No longer eligible b ased on patient's age to complete this topic PNEUMOCOCCAL VACCINE Aged Out No long er eligible based on patient's age to complete this topic Insurance [facility] Care Teams Editor Publications Relationship Specialty Start Date End Date Lisa Alas PA [facility] [place] [address] PCP - General 06/28/22
--- NOTE | 2024-11-11 11:37 | ECHO_ITS ---
Patient Info Name: Jeyson Salazar Age: 49 years : 1975 Gender: Male Ht: 76 in Wt: 310 lbs BSA: 2.79 m2 HR: 80 bpm BP: 134 / 92 mmHg Technical Quality: Poor Exam Date: 11/11/2024 11:44 AM Patient Status: O Admit Date: 11/11/2024 Exam Type: CA echo dop color flow w con Complete two-dimensional, color flow and Doppler transthoracic echocardiogram is performed with contrast to opacify the left ventricle and to improve the deliniation of the left ventricle endocardial borders. Beef Farmer: So Pradhan Attending Provider: Shan Strange DO Contrast/Agitated Saline Contrast/Ag. Saline: Definity Amount: 2.00 ml Administered By: So Pradhan New IV Access: Left and Antecubital Space Site Condition: IV removed, Site dressing applied and No extravasation Reason for Poor Study: patient body habitus Summary 1. Left ventricular chamber dimension is moderately enlarged. 2. Left ventricular systolic function is mildly reduced, estimated at 45-50. 3. There is moderate concentric increased left ventricular wall thickness. 4. The left ventricular diastolic function is grade I diastolic dysfunction. 5. Definity contrast administered improved wall motion interpretation. 6. E/e' 11 is mildly elevated. 7. Left atrial chamber dimension is moderately enlarged. 8. There is mild aortic valve sclerosis. 9. There is trace aortic valve regurgitation. 10. There is trace mitral valve regurgitation. 11. There is trace tricuspid valve regurgitation. 12. No pulmonary hypertension, estimated pulmonary arterial systolic pressure is 29 mmHg. Left Ventricle E/e' 11 is mildly elevated. Left ventricular chamber dimension is moderately enlarged. Left ventricular systolic function is mildly reduced, estimated at 45-50. There is moderate concentric increased left ventricular wall thickness. The left ventricular diastolic function is grade I diastolic dysfunction. Definity contrast administered improved wall motion interpretation. Right Ventricle Right ventricular chamber dimension is normal. Right ventricular systolic function is normal. Left Atria Left atrial chamber dimension is moderately enlarged. Right Atria Right atrial chamber dimension is normal. Aortic Valve The aortic valve is trileaflet. There is mild aortic valve sclerosis. There is no aortic valve stenosis. There is trace aortic valve regurgitation. Pulmonic Valve There is no pulmonic regurgitation. Mitral Valve There is no mitral valve stenosis. There is trace mitral valve regurgitation. Tricuspid Valve There is trace tricuspid valve regurgitation. No pulmonary hypertension, estimated pulmonary arterial systolic pressure is 29 mmHg. Pericardium/Pleural There is no pericardial effusion. Inferior Vena Cava Normal inferior vena cava with >50% collapse upon inspiration consistent with normal right atrial pressure, 5 mmHg. Aorta The aortic root size at the sinus of Valsalva is normal. Left Ventricular Outflow Tract Name Value Normal LVOT 2D LVOT Diameter 2.6 cm LVOT Doppler LVOT Peak Velocity 106 cm/s LVOT Peak Gradient 4 mmHg LVOT Mean Gradient 2 mmHg LVOT VTI 19 cm LVOT VTI/AV VTI Ratio 0.8 LVOT Stroke Volume 101 ml LVOT CO 7.5 l/min LVOT CI 2.7 l/min/m2 Pulmonic Valve Name Value Normal RVOT Doppler RVOT Peak Velocity 67 cm/s RVOT Peak Gradient 2 mmHg PV Doppler PV Peak Velocity 105 cm/s PV Peak Gradient 4 mmHg Mitral Valve Name Value Normal MV Diastolic Function MV E Peak Velocity 48 cm/s MV A Peak Velocity 66 cm/s MV E/A 0.7 MV Decel Time (PW) 143 ms Tricuspid Valve Name Value Normal TV Regurgitation Doppler TR Peak Velocity 243 cm/s TR Peak Gradient 24 mmHg Estimated PAP/RSVP RA Pressure 5 mmHg <=5 PA Systolic Pressure 29 mmHg <36 RV Systolic Pressure 29 mmHg <36 TV Annular TDI TV Lateral Winter s' Velocity 9.7 cm/s >=9.5 Aorta Name Value Normal Ascending Aorta Ao Root Diameter (MM) 4.1 cm Ao Root Diam Index (MM) 1.5 cm/m2 Aortic Valve Name Value Normal AV Doppler AV Peak Velocity 146 cm/s AV Peak Gradient 5 mmHg AV Mean Gradient 3 mmHg AV VTI 25 cm AV Area (Cont Eq VTI) 4.0 cm2 >=3.0 AV Area (Cont Eq Wilberto) 3.8 cm2 AV DI (Wilberto) 0.72 AV Regurgitation 2D LVOT Area 5.2 cm2 Ventricles Name Value Normal LV Dimensions 2D/MM IVS Diastolic Thickness (2D) 1.8 cm 0.6-1.0 IVS Diastole Thickness (MM) 1.4 cm 0.6-1.0 LVID Diastole (2D) 6.6 cm 4.2-5.8 LVID Diastole (MM) 7.7 cm 4.2-5.8 LVIW Diastolic Thickness (2D) 1.6 cm 0.6-1.0 LVIW Diastolic Thickness (MM) 1.6 cm 0.6-1.0 LVID Systole (2D) 5.4 cm 2.5-4.0 LVID Systole (MM) 5.2 cm 2.5-4.0 LVOT Diameter 2.6 cm LV Mass (2D Cubed) 573.08 g 88.00-224.00 LV Mass Index (2D Cubed) 205 g/m2 49-115 Relative Wall Thickness (2D) 0.48 <=0.42 LV Mass (MM Cubed) 623.89 g 88.00-224.00 LV Mass Index (MM Cubed) 223 g/m2 49-115 Relative Wall Thickness (MM) 0.41 LV Fractional Shortening/Ejection Fraction 2D/MM LV Fractional Shortening (2D) 18 % 25-43 LV Fractional Shortening (MM) 33 % 25-43 LV EF (MM Teichholz) 60 % LV EF (2D Teichholz) 37 % LV Diastolic Volume (4C MOD) 234 ml LV EF (4C MOD) 32 % LV Diastolic Volume (2C MOD) 210 ml LV EF (2C MOD) 46 % LV Diastolic Volume (BP MOD) 223 ml 62-150 LV Diastolic Volume Index (BP MOD) 80 ml/m2 34-74 LV Systolic Volume (BP MOD) 140 ml 21-61 LV Systolic Volume Index (BP MOD) 50 ml/m2 11-31 LV EF (BP MOD) 37 % 52-72 LV Diastolic Length (4C) 10.5 cm LV Systolic Length (4C) 9.4 cm LV Stroke Volume (4C MOD) 76 ml Atria Name Value Normal LA Dimensions LA Dimension (MM) 4.8 cm 3.0-4.0 LA Volume (4C A-L) 108 ml LA Volume (BP A-L) 110 ml RA Dimensions RA Systolic Major [place] Length (4C) 6.7 cm 2.1-2.7 RA Area (4C) 20.9 cm2 <=18.0 Report Signatures
[2024-11-11] MEDS: PERFLUTREN LIPID MICROSPHERES 1.5 ML VIAL DILUTED TO 10 ML TOTAL VOLUME IV PUSH (12:25)
--- NOTE | 2024-11-11 12:44 | IVDEFINITY ---
Prior to administration of IV Definity the patient was educated on the risks and benefits of the imaging enhancing agent including potential adverse side effects. The patient verbalized understanding. Allergies were verified. No exclusion criteria were identified and at least one of the following inclusion criteria were met: 1) physician request, 2) patient technically difficult to image (per the [place] [employer] Echocardi[employer] guidelines of two or more segments not discernable within the apical view), or 3) questionable left ventricular function. ?
== END 2024-11-11 11:31 | disposition home or self-care (01) ==
PROVIDERS: PCP Physician Assistant Medical; Visit Provider Internal Medicine Cardiovascular Disease
DX: I42.8 Other cardiomyopathies (principal)
CPT/HCPCS: C8929; Q9957